=== PATIENT | female | born 1950 | race Caucasian/White ===

== ENCOUNTER 2019-01-10 22:13 | Emergency (ER) | payer MEDICARE ==
[~2019-01-10] VITALS: Ht 165.1 cm; Wt 66.8 kg
[2019-01-10 22:14] VITALS: BP 160/77
[2019-01-10] MEDS: PHENAZOPYRIDINE 100 MG TAB PO ONE ×2 (23:25→23:31)
[2019-01-10] MEDS ORDERED: NITROFURANTOIN (MACROBID) 100 MG CAP PO ONE (23:30)
[2019-01-10] MEDS ORDERED: PHEN-594 PO (23:35)
[2019-01-10] MEDS ORDERED: MACR100C43 PO (23:35)
== END 2019-01-10 23:41 | disposition home or self-care (01) ==
LOC: M ED 22:13
DX: N39.0 Urinary tract infection, site not specified (principal); F17.210 Nicotine dependence, cigarettes, uncomplicated